=== PATIENT | male | born 1970 | race American Indian/Alaskan Native ===

== ENCOUNTER 2019-07-13 11:10 | Outpatient (CLI) | payer OTHER ==
--- NOTE | 2019-07-13 12:07 | XRay Report ---
ABDOMEN 1 VIEW(S) INDICATION / CLINICAL INFORMATION: R36.1 HEMATOSPERMIA. COMPARISON: None available. FINDINGS: TUBES / LINES: None. BOWEL GAS PATTERN: No significant abnormality. FREE AIR / EXTRALUMINAL GAS: None seen. ADDITIONAL FINDINGS: No significant additional findings. IMPRESSION: No significant abnormality. Signer Name: Landen Reyes Jr, MD Signed: 07/13/2019 12:03 PM Workstation Name: [id number]
== END 2019-07-13 11:11 | disposition home or self-care (01) ==
LOC: XRAY 11:10
PROVIDERS: ATTEND Urology
DX: R36.1 Hematospermia (principal)
CPT/HCPCS: 74018

== ENCOUNTER 2019-10-05 10:54 | Day surgery (SDC) | payer OTHER ==
[2019-10-05] MEDS ORDERED: ONDANSETRON 4 MG/2 ML INJ IV PRN (11:21)
[2019-10-05] MEDS ORDERED: fentaNYL 100 MCG/2 ML INJ IV PRN (11:21)
--- NOTE | 2019-10-05 11:21 | Anesthesia Day of Surgery ---
Anesthesia Day of Surgery - Day of Surgery Patient Examined: Yes Patient H&P Reviewed: Yes Patient is NPO: Yes
--- NOTE | 2019-10-05 11:25 | Anesthesia Consultation ---
Anesthesia Consult and Med Hx Date of service: 10/05/19 - Airway Anesthetic Teeth Evaluation: Good ROM Head & Neck: Adequate Mental/Hyoid Distance: Adequate Mallampati Class: Class II Intubation Access Assessment: Probably Good - Pre-Operative Health Status ASA Pre-Surgery Classification: ASA1 Proposed Anesthetic Plan: General - Pulmonary Hx Smoking: No Hx Sleep Apnea: No ([place] PRE SCREEN LOW RISK.) - Cardiovascular System Hx Hypertension: No - Other Systems Hx Cancer: No
[2019-10-05] MEDS ORDERED: LIDOCAINE MPF (2%) 20 MG/1 ML VIAL 5 ML ONE (11:51)
[2019-10-05] MEDS ORDERED: fentaNYL 100 MCG/2 ML INJ ONE (11:51)
[2019-10-05] MEDS ORDERED: ONDANSETRON 4 MG/2 ML INJ ONE (11:51)
[2019-10-05] MEDS ORDERED: propofoL 200 MG/20 ML VIAL IV ONE (11:51)
[2019-10-05] MEDS ORDERED: MIDAZOLAM 2 MG/2 ML INJ IV NR (12:00)
[2019-10-05] MEDS ORDERED: LACTATED RINGERS 1,000 ML IV SCH (12:00)
[2019-10-05] MEDS ORDERED: dexAMETHasone 20 MG/5 ML VIAL ONE (12:49)
[2019-10-05] MEDS ORDERED: ceFAZolin/STERILE WATER 2 GM/20 ML SYRINGE IV NR (13:00)
[2019-10-05] MEDS ORDERED: WATER FOR IRRIG STERILE 2000 ML IR ONE (13:09)
[2019-10-05] MEDS ORDERED: LACTATED RINGERS 1,000 ML ONE (13:26)
--- NOTE | 2019-10-05 13:30 | Post Operative Note ---
Date of procedure: 10/05/19 Pre-op diagnosis: stricture Post-op diagnosis: same Findings: stricture Procedure: cysto dviu Anesthesia: GETA Surgeon: KINGS HERNANDEZ Estimated blood loss: none Pathology: none Specimen disposition: to lab Condition: stable Disposition: PACU
--- NOTE | 2019-10-05 13:31 | Discharge Summary ---
Short Stay Discharge Plan Activity: other Weight Bearing Status: Non-Weight Bearing Diet: low fat, low cholesterol, low salt Special Instructions: other Durable Medical Equipment Needed Upon Discharge: other (home with cath ) Follow up with: DEVIN BEYER MD [Primary Care Provider] - 7 Days KINGS HERNANDEZ MD [Staff Physician] - 7 Days
--- NOTE | 2019-10-05 13:39 | Operative Report ---
PREOPERATIVE DIAGNOSES: Severe urethral stricture. POSTOPERATIVE DIAGNOSES: Severe urethral stricture measuring approximately 4 cm. PROCEDURE: Cystoscopy, DVIU, insertion of [place] catheter. SURGEON: Dr. Estrada. ANESTHESIA: General. FINDINGS: This is a gentleman with a diminished flow very dense and small stricture, now presents for treatment. All risks and implications discussed. DESCRIPTION OF PROCEDURE: The patient was brought to the operating room and placed on the operating table. Following induction of anesthesia, placed in the lithotomy position, prepped and draped in usual sterile fashion. Cystourethroscopy showed a pinpoint stricture. This was opened after a wire passed into the bladder under fluoroscopic guidance. It measured at least 3.5-4 cm. The patient tolerated the procedure well. It was almost as if it was bulbous and then a little opening in the membranous. Prostatic urethra was normal. Bladder was 1+ trabeculated. The patient tolerated the procedure well. No bladder lesions. The cystoscope was inserted 22[place] and bladder was well visualized with 30 and 70 degree lenses. The patient tolerated the procedure well. No significant bleeding. There was no bleeding from the DVIU. This was dense scar tissue. He was brought to recovery room with a 22 [place] in stable condition. JOB# [id number] MARTINA/RASHID
--- NOTE | 2019-10-05 13:52 | XRay Report ---
ABDOMEN SUPINE INDICATION / CLINICAL INFORMATION: POST TRAUMATIC URETHRAL STRICTURE. COMPARISON: 07/13/2019 FINDINGS: Images demonstrate first a wire and then a catheter projected over the urinary bladder. Signer Name: Gene Isaacs MD Signed: 10/05/2019 1:47 PM Workstation Name: [id number]
[2019-10-05 14:08] VITALS: BP 169/73
--- NOTE | 2019-10-05 16:44 | Post Anesthesia Evaluation ---
- Post Anesthesia Evaluation Patient Participated: Yes Airway Patent: Yes Stable Respiratory Function: Yes Nausea/Vomiting: No Temp > 96.8F: Yes Pain Manageable: Yes Adequeate Hydration: Yes Anesthesia Complications: No Block Receding Appropriately: Not Applicable Patient on Ventilator: No
== END 2019-10-05 14:48 | disposition home or self-care (01) ==
LOC: OR 10:54
PROVIDERS: ATTEND Urology
DX: N35.819 Other urethral stricture, male, unspecified site (principal); E78.00 Pure hypercholesterolemia, unspecified; Z98.890 Other specified postprocedural states; Z79.899 Other long term (current) drug therapy
CPT/HCPCS: 52276; 74018; A4217; C1769; J1100; J2405; J2704; J3010; J7120